=== PATIENT | female | born 1965 | race Caucasian/White ===

== ENCOUNTER 2018-10-19 22:01 | Emergency (ER) | payer OTHER ==
[2018-10-19 22:13] VITALS: BP 109/65; PULSE 75; RESP 18; TEMP 97.9
[2018-10-19] MEDS ORDERED: predniSONE 50 MG TAB PO STA (22:43)
[2018-10-19] MEDS ORDERED: diphenhydrAMINE 2% CREAM 28.4 GM TUBE TOPICAL STA (22:43)
--- NOTE | 2018-10-19 22:51 | ED ---
General Adult HPI - General Chief complaint: Skin/Abscess/Foreign Body Stated complaint: Bug Bites Time Seen by Provider: 10/19/18 22:14 Source: patient, RN notes reviewed, old records reviewed Mode of arrival: ambulatory Limitations: no limitations - History of Present Illness Initial comments: 50-year-old female patient upper intestinal history presents to the chief complaint of rash on right forearm for approximately 6 weeks. Patient states that is very pruritic. Patient points that she does get small white bumps that at times become raised and itchy. Patient states that she does not have any bumps or now, however still has some pruritus in the region. Patient is not seen any insects biting her. Patient did find a tick in her house today, h owever denies any ticks on body currently. Denies any target rash. Denies any tick bites or engorgement. Denies other complaints. Denies any chest pain shortness abdominal pain nausea vomiting or diarrhea. Patient states that she is not . Systemic: Pt denies fatigue, fever/chills,. Pt denies weakness, night sweats, weight loss. Neuro: Pt denies headache, visual disturbances, syncope or pre-syncope. HEENT: Pt denies ocular discharge or irritation, otalgia, rhinorrhea, pharyngitis or notable lymphadenopathy. Cardiopulmonary: Pt denies chest pain, SOB, heart palpitations, dyspnea on exertion. Abdominal/GI: Pt denies abdominal pain, n/v/d. : Pt denies dysuria, burning w/ urination, frequency/urgency. Denies new onset urinary or bowel incontinence. MSK: Pt denies myalgia, loss of strength or function in extremities. Neuro: Pt denies new onset weakness, paresthesias. - Related Data Previous Rx's Medication Instructions Recorded diphenhydrAMINE & Zinc Cream 1 applic TOPICAL BID 7 Days #1 tube 10/19/18 [Benadryl Cream] predniSONE 50 mg PO DAILY #4 tab 10/19/18 Allergies Allergy/AdvReac Type Severity Reaction Status Date / Time No Known Allergies Allergy Verified 10/19/18 22:13 Review of Systems ROS Statement: Those systems with pertinent positive or pertinent negative responses have been documented in the HPI. ROS Other: All systems not noted in ROS Statement are negative. Past Medical History Past Medical History: Cancer Additional Past Medical History / Comment(s): skin History of Any Multi-Drug Resistant Organisms: None Reported Additional Past Surgical History / Comment(s): facial Past Psychological History: Anxiety Smoking Status: Current every day smoker Past Alcohol Use History: None Reported Past Drug Use History: None Reported General Exam - General Exam Comments Initial Comments: Constitutional: NAD, AOX3, Pt has pleasant affect. HEENT: NC/AT, trachea midline, neck supple, no lymphadenopathy. Posterior pharynx non erythematous, without exudates. External ears appear normal, without discharge. Mucous membranes moist. Eyes PERRLA, EOM intact. There is no scleral icterus. No pallor noted. Cardiopulmonary: RRR, no murmurs, rubs or gallops, no JVD noted. Lungs CTAB in anterior and posterior bartholomew. No peripheral edema. Abdominal exam: Abdomen soft and non-distended. Abdomen non-tender to palpation in all 4 quadrants. Bowel sounds active in LLQ. No hepatosplenomegaly. No ecchymosis Neuro: CN II-XII grossly intact. No nuchal rigidity. No raccon eyes, no devi sign, no hemotympanum. No cervical spinal tenderness. MSK: Mild contact dermatitis noted on right forearm. No other rash noted. No posterior calf tenderness bilaterally, homans sign negative bilaterally. Posterior tibialis and radial pulse +2 bilaterally. Sensation intact in upper and lower extremities. Full active ROM in upper and lower extremities, 5/5 stregnth. Limitations: no limitations Course Vital Signs 10/19/18 22:07 Temperature 97.9 F Pulse Rate 75 Respiratory 18 Rate Blood Pressure 109/65 O2 Sat by Pulse 99 Oximetry Medical Decision Making - Medical Decision Making 50-year-old female patient upper intestinal history presents to the chief complaint of rash on right forearm for approximately 6 weeks. Patient states that is very pruritic. Patient points that she does get small white bumps that at times become raised and itchy. Patient states that she does not have any bumps or now, however still has some pruritus in the region. Patient is not seen any insects biting her. Patient did find a tick in her house today, however denies any ticks on body currently. Denies any tick bites or engorgement. Denies other complaints. Denies any chest pain shortness abdominal pain nausea vomiting or diarrhea. Patient states that she is not . Patient also stable, afebrile. Physical exam displayed mild contact dermatitis noted on right forearm. No other areas of rash noted. Patient presc ribed Benadryl cream and 5 days of steroids. Patient will follow up with primary care provider. Patient also given dermatology referral. Patient return to ER if conditions worsen anyway. Case discussed with Dr. Mckinney. Disposition Clinical Impression: Rash, Contact dermatitis Disposition: HOME SELF-CARE Condition: Stable Instructions (If sedation given, give patient instructions): Acute Rash (ED) Prescriptions: diphenhydrAMINE & Zinc Cream [Benadryl Cream] 1 applic TOPICAL BID 7 Days #1 tube predniSONE 50 mg PO DAILY #4 tab Is patient prescribed a controlled substance at d/c from ED?: No Referrals: Jacobo Wood MD [Primary Care Provider] - 1-2 days Robert Silverio MD [STAFF PHYSICIAN] - 1-2 days David Moore MD [STAFF PHYSICIAN] - 1-2 days Lupe Sánchez MD [REFERRING] - 1-2 days Aryan Segura MD [REFERRING] - 1-2 days Paige Silverio MD [STAFF PHYSICIAN] - 1-2 days
== END 2018-10-19 23:09 | disposition home or self-care (01) ==
LOC: EC 22:01
DX: L25.9 Unspecified contact dermatitis, unspecified cause (principal); F17.200 Nicotine dependence, unspecified, uncomplicated; Z85.828 Personal history of other malignant neoplasm of skin
CPT/HCPCS: 99283; J7512